=== PATIENT | female | born 1960 | race Caucasian/White ===

== ENCOUNTER → 2017-01-18 | Outpatient (CLI) | payer BC | LOC: MC.RAD 07:17 | DX: Z12.31 Encounter for screening mammogram for malignant neoplasm of breast (principal) ==

== ENCOUNTER → 2018-09-30 | Outpatient (CLI) | payer BC | LOC: MC.RAD 07:40 | DX: Z12.31 Encounter for screening mammogram for malignant neoplasm of breast (principal) ==

== ENCOUNTER → 2019-10-22 | Outpatient (CLI) | payer BC | LOC: MC.RAD 08:11 | DX: Z12.31 Encounter for screening mammogram for malignant neoplasm of breast (principal) ==

== ENCOUNTER 2020-02-15 08:23 | Outpatient (RCR) | payer OTHER | END 2020-02-23 12:44 | disposition home or self-care (01) | LOC: WSOH 08:23 | DX: G44.301 Post-traumatic headache, unspecified, intractable (principal); Z90.710 Acquired absence of both cervix and uterus; F32.9 Major depressive disorder, single episode, unspecified; I10 Essential (primary) hypertension; E07.9 Disorder of thyroid, unspecified; Y99.0 Civilian activity done for income or pay ==

== ENCOUNTER 2020-08-26 09:37 | Outpatient (RCR) | payer OTHER | END 2020-10-18 | disposition home or self-care (01) | LOC: WSOH | DX: S60.032D Contusion of left middle finger without damage to nail, subsequent encounter (principal); S80.02XD Contusion of left knee, subsequent encounter; M17.12 Unilateral primary osteoarthritis, left knee; F32.9 Major depressive disorder, single episode, unspecified; I10 Essential (primary) hypertension; E07.9 Disorder of thyroid, unspecified; Y99.0 Civilian activity done for income or pay; Z90.711 Acquired absence of uterus with remaining cervical stump ==

== ENCOUNTER → 2020-10-31 | Outpatient (CLI) | payer BC | LOC: MC.RAD 08:09 | DX: Z12.31 Encounter for screening mammogram for malignant neoplasm of breast (principal) ==